=== PATIENT | male | born 1985 | race African-American/Black ===

== ENCOUNTER 2016-12-24 17:06 | Emergency (ER) | payer MEDICAID, OTHER ==
[~2016-12-24] VITALS: Ht 177.8 cm; Wt 85.0 kg
[~2016-12-24 17:06] MED LIST: ERYT1O LEFT EYE
[2016-12-24 17:07] VITALS: BP 146/63; PULSE 86; RESP 15; TEMP 98.1; O2SAT 98
--- NOTE | 2016-12-24 17:44 | PD ---
HPI Chief Complaint: Skin Problem Time Seen by Provider: 17:41 Travel History International Travel<30 days: No Contact w/Intl Traveler<30days: No Traveled to known affect area: No History of Present Illness HPI Patient comes in complaining of pruritic rash ongoing for approximately a week. Patient reports the rash started on his hands and has since spread over his body sparing his privates. Patient states itching is worse at night. Patient states he has tried Benadryl that helps minimally. Patient's Associates friend reportedly had an infestation of scabies the last month or so has been at the patient's house. [facility] Past Medical History Medical History: Denies Significant Hx Social History Alcohol Use: No Tobacco Use: No Substance Use: No Allergies-Medications (Allergen,Severity, Reaction): Coded Allergies: Seafood (Verified Allergy, Unknown, 02/12/16) Reported Meds & Prescriptions Reported Meds & Active Scripts Active Permethrin Topical (Permethrin) 5% Cream 1 Applic TOPICAL ONCE Erythromycin Opht 0.5% Oint (Erythromycin) 0.5 % Oint 1 Applic LEFT EYE Q4-6H 10 Days Instill 1/2 inch Review of Systems Except as stated in HPI: all other systems reviewed are Neg Physical Exam Narrative GENERAL: Well-developed, overly nourished, in no acute distress, and non-ill appearing. SKIN: Warm and dry. Scabies appearing rash noted bilateral upper extremities and trunk. HEAD: Atraumatic. Normocephalic. EYES: Pupils equal and round. EOMI. No scleral icterus. No injection or drainage. ENT: No nasal bleeding or discharge. Mucous membranes pink and moist. NECK: Trachea midline. Supple. No nuclear rigidity. RESPIRATORY: No accessory muscle use. No respiratory distress. MUSCULOSKELETAL: No obvious deformities. No clubbing. No cyanosis. No edema. Full range of motion. NEUROLOGICAL: Awake and alert. No obvious cranial nerve deficits. Motor grossly within normal limits. Normal speech. PSYCHIATRIC: Appropriate mood and affect; insight and judgment normal. Data Data Last Documented VS Vital Signs Date Time Temp Pulse Resp B/P Pulse Ox O2 Delivery O2 Flow Rate FiO2 12/24/16 17:07 98.1 86 15 146/63 98 MDM Medical Decision Making Medical Screen Exam Complete: Yes Emergency Medical Condition: Yes Differential Diagnosis Folliculitis, scabies, abscess, cellulitis, allergic reaction, other Narrative Course The patient presents with pruritic rash consistent with scabies. The lesions are papular and in the typical distribution for scabies. There is no evidence of secondary infection such as cellulitis or impetigo. The rash does not appear to be viral or typical of contact dermatitis or folliculitis by history and exam. Doubtful is atopic dermatitis as well. The patient was informed regarding spread by [id number] contact and via fomites such as clothes, blankets, bedding and furniture. The patient will be discharged on Permethrin cream and the patient was instructed on use and to avoid mouth, eyes, nose and anus. The patient was also instructed on having all family members and exposed persons seen by a primary director medicare sales and be treated as well. The patient agreed with plan. Patient in no obvious distress upon re-evaluation. Patient was asked if they wanted to speak to my attending, which the patient did not wish to do at this time. Any questions/concerns in reference to patient diagnosis/condition discussed and clarified prior to patient's discharge. Reinforced sheer importance of close follow up with patient's primary physician or primary care clinic. Instructed patient to return to ED immediately, if symptoms return/ worsen. Pt showed understanding of above instructions. Further instructions and recommendations were detailed in discharge paperwork. Pt ambulated without difficulty out of ED at discharge. Diagnosis Primary Impression: Scabies Patient Instructions: General Instructions, Scabies (ED) Additional Instructions: Follow-up with your primary care physician next week for evaluation. Take all medication as prescribed and avoid applying medicine to avoid mouth, eyes, nose , and anus. Return to the emergency department if symptoms get worse. Med/Other Pt SpecificInfo: Prescription(s) given Scripts Permethrin Topical 5% Cream1 Applic TOPICAL ONCE #1 TUBE Ref 0 Prov:Ivett Mohamud MD 12/24/16 Disposition: 01 DISCHARGE HOME Condition: Stable Jarred Gutierres Dec 24, 2016 17:44
[2016-12-24] MEDS ORDERED: PERM5CRE TOPICAL (17:45)
== END 2016-12-24 18:53 | disposition home or self-care (01) ==
LOC: NEPB 17:06
DX: B86 Scabies (principal)
CPT/HCPCS: 99282